=== PATIENT | female | born 1995 | race Caucasian/White ===

== ENCOUNTER 2017-09-17 19:50 | Emergency (ER) | payer BC ==
[~2017-09-17] VITALS: Ht 162.6 cm; Wt 51.4 kg
[2017-09-17 19:56] VITALS: TEMP 36.7; Ht 162.6 cm; Wt 51.4 kg
[2017-09-17] MEDS ORDERED: SODIUM CHLORIDE 0.9% 1000ML 1,000 ML IV STA ×2 (20:30)
[2017-09-17] MEDS ORDERED: KETOROLAC TROMETHAMINE 30 MG/ML VIAL IV STA (20:30)
[2017-09-17] MEDS ORDERED: ONDANSETRON INJ 2 MG/ML 2 ML VIAL IV STA (20:30)
[2017-09-17 21:08] LABS: BASO % 0.1 %; BASO ABS # 0.01 K/uL (0-0.2); EOS % 0.4 %; EOS ABS # 0.03 K/uL (0-0.5); HEMATOCRIT 41.1 % (37-47); HEMOGLOBIN 14.3 g/dL (12.0-16.0); IG# 0.01 K/uL (0.00-0.02); LYMPH % 19.7 %; MEAN CELL VOLUME 85.8 fL (80-100); MEAN CORPUSCULAR HEMOGLOBIN 29.9 pg (25-34); MEAN CORPUSCULAR HGB CONC 34.8 g/dl (32-36); MEAN PLATELET VOLUME 10.7 fL (7.4-10.4); MONO % 7.5 %; MONO ABS # 0.61 K/uL (0.11-0.59); NEUT % 72.2 %; NEUT ABS # 5.86 K/uL (1.4-6.5); PLATELET COUNT 203 K/uL (130-400); RED CELL DISTRIBUTION WIDTH CV 11.5 % (11.5-14.5); RED CELL DISTRIBUTION WIDTH SD 36.1 fL (36.4-46.3); WHITE BLOOD COUNT 8.12 K/uL (4.8-10.8)
[2017-09-17] MEDS ORDERED: OPTIRAY 320 IV PRN (22:00)
[2017-09-17 22:33] LABS: CALCIUM 8.7 mg/dl (8.5-10.1); CREATININE 0.85 mg/dl (0.60-1.20); POTASSIUM 3.4 mmol/L (3.5-5.1); TOTAL PROTEIN 8.2 gm/dl (6.4-8.2)
[2017-09-17 22:59] VITALS: BP 107/72; PULSE 85; O2SAT 99
--- NOTE | 2017-09-17 23:03 | DIAGNOSTIC IMAGING REPORT ---
ABD/PELVIS IV CONTRAST ONLY CLINICAL HISTORY: 21 years-old Female presenting with EVAL ABD PAIN, stomach pain, diarrhea. TECHNIQUE: Multidetector CT of the abdomen and pelvis was performed after the administration of intravenous contrast. IV contrast: 115 mL of Optiray 320. A dose lowering technique was used consistent with the principles of ALARA (as low as reasonably achievable). COMPARISON: None. CT DOSE (mGy.cm): The estimated cumulative dose is 246.56 mGy.cm. 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 Lung bases: Lungs and pleural spaces clear. Normal heart size. No pericardial or pleural effusion. Liver: Normal morphology. No liver lesion. Patent hepatic vasculature. Biliary: No intrahepatic or extrahepatic biliary ductal dilatation. Normal gallbladder. Pancreas: Normal. Spleen: Normal. Adrenal glands: Normal. Kidneys and ureters: Normal. No hydronephrosis. Bladder: Mild circumferential bladder wall thickening. Pelvic organs: Uterus and ovaries normal. Follicles noted in the ovaries bilaterally. Bowel: The cecum and proximal ascending colon is thick-walled. The terminal ileum is mildly distended. The appendix is normal (series 3 image 308). No periappendiceal fat stranding. No bowel obstruction. No gross evidence of small bowel wall thickening. Peritoneal cavity: Trace free fluid in the pelvis. Lymph nodes: Few prominent subcentimeter lymph nodes in the right lower quadrant mesentery. No pathologically enlarged lymph nodes by CT size criteria. Vasculature: Aorta and IVC patent and normal in caliber. Abdominal wall: Normal. Musculoskeletal: Normal. IMPRESSION: 1. Findings consistent with colitis, most likely infectious involving the cecum and ascending colon. The appendix is normal. 2. Circumference of bladder wall thickening could suggest cystitis. Correlate with urinalysis. Alternatively, this may be secondarily reactive to the colitis. Electronically signed by: Jesus Contreras M.D. 09/17/2017 11:02 PM Dictated Date/Time: 09/17/2017 10:55 PM
--- NOTE | 2017-09-17 23:16 | EMERGENCY ROOM VISIT NOTE ---
History First contact with patient: 20:14 Chief Complaint: ABDOMINAL PAIN Stated Complaint: STOMACH PAIN & DIARRHEA Nursing Triage Summary: mid abdominal pain and diarrhea for 28 hours. History of Present Illness Patient is an otherwise healthy 21-year-old white female who presents to the emergency department for evaluation of mid abdominal pain and diarrhea that started roughly 24 hours ago. Patient reports that she was feeling well and was in her usual state of health yesterday. She was at work when she began to notice some mild mid abdominal pain. Later that evening, she developed diarrhea. She states that she was able to get some sleep lasting, but her symptoms persisted this morning. She went to [facility] early in the morning, they'll discuss that her illness likely viral in nature and recommended an over- the-counter antidiarrheal. Patient states that she continue to have symptoms throughout the day. She reports roughly 12 bowel movements, she notes that they are yellow/orange in color, no melena or hematochezia. She has not vomited , but was nauseous intermittently. She did not have a fever. She states the pain was unchanged with eating and with moving her bowels. She did feel a little bit better this evening and ate some pears and noodles, which caused nausea and a recurrence of the diarrhea which prompted her to come to the emergency department. 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 She denies any recent antibiotic use, foreign travel or unusual food or water consumption. She has municipal water as a source at home. She denies any urinary symptoms. Last menstrual period was about a week and half ago, and she denies any chance of . She rates the pain a 7/10, notes it in the mid abdomen, between her ribs and her belt line. She denies any radiation. Review of Systems Review of systems as per HPI. All other systems reviewed were negative. 10 systems reviewed. Past Medical/Surgical History Medical Problems: (1) No Known Active Medical Problems Surgical Problems: (1) History of tonsillectomy and adenoidectomy The patient has no old records for review. Supplemental sheet was filled out by the patient, was reviewed and was unremarkable. Social History Smoking Status: Never Smoker Current/Historical Medications No Active Prescriptions or Reported Meds Physical Exam Vital Signs Date Time Temp Pulse Resp B/P (MAP) Pulse Ox O2 Delivery O2 Flow Rate FiO2 09/17/17 22:59 85 16 107/72 99 Room Air 09/17/17 21:52 93 18 116/69 100 Room Air 09/17/17 19:56 36.7 120 16 118/74 99 Room Air Physical Exam CONSTITUTIONAL: Patient is a well-appearing 21-year-old white female who is awake and alert and in no acute distress. She is noted to be tachycardic in triage. EYES: Pupils equal, round, reactive to light and accommodation. EOMs intact without nystagmus. Sclera are anicteric. ENT: Tympanic membranes intact, with normal landmarks. External canals are clear. Oral and nasopharynx are clear. Mucous membranes are moist, no lesions , tongue and gums appear normal. NECK: No bruits auscultated. Supple without lymphadenopathy. No thyromegaly. No meningeal signs. Full active range of motion without discomfort. CARDIOVASCULAR: Regular rate and rhythm, with normal S1 and S2, no murmur or gallop or rub is heard. No carotid bruits auscultated. No JVD. Peripheral pulses easily palpable. RESPIRATORY: Breath sounds equal and clear to auscultation without wheezes, rales, or rhonchi heard. Full and equal chest expansion without accessory muscle use or retractions. ABDOMEN: Bowel sounds are present. Abdomen is soft, scaphoid, mildly tender throughout the mid abdomen, and in the right lower quadrant, no guarding, rebound or rigidity. INTEGUMENTARY: No lesions or rash, normal skin turgor. LYMPH: No lymphadenopathy. Medical Decision & Procedures ER Provider Diagnostic Interpretation: ABD/PELVIS IV CONTRAST ONLY CLINICAL HISTORY: 21 years-old Female presenting with EVAL ABD PAIN, stomach pain, diarrhea. TECHNIQUE: Multidetector CT of the abdomen and pelvis was performed after the administration of intravenous contrast. IV contrast: 115 mL of Optiray 320. A dose lowering technique was used consistent with the principles of ALARA (as low as reasonably achievable). COMPARISON: None. CT DOSE (mGy.cm): The estimated cumulative dose is 246.56 mGy.cm. 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 Lung bases: Lungs and pleural spaces clear. Normal heart size. No pericardial or pleural effusion. Liver: Normal morphology. No liver lesion. Patent hepatic vasculature. Biliary: No intrahepatic or extrahepatic biliary ductal dilatation. Normal gallbladder. Pancreas: Normal. Spleen: Normal. Adrenal glands: Normal. Kidneys and ureters: Normal. No hydronephrosis. Bladder: Mild circumferential bladder wall thickening. Pelvic organs: Uterus and ovaries normal. Follicles noted in the ovaries bilaterally. Bowel: The cecum and proximal ascending colon is thick-walled. The terminal ileum is mildly distended. The appendix is normal (series 3 image 308). No periappendiceal fat stranding. No bowel obstruction. No gross evidence of small bowel wall thickening. Peritoneal cavity: Trace free fluid in the pelvis. Lymph nodes: Few prominent subcentimeter lymph nodes in the right lower quadrant mesentery. No pathologically enlarged lymph nodes by CT size criteria. Vasculature: Aorta and IVC patent and normal in caliber. Abdominal wall: Normal. Musculoskeletal: Normal. IMPRESSION: 1. Findings consistent with colitis, most likely infectious involving the cecum and ascending colon. The appendix is normal. 2. Circumference of bladder wall thickening could suggest cystitis. Correlate with urinalysis. Alternatively, this may be secondarily reactive to the colitis. Laboratory Results 09/17/17 20:51 Red Blood Count 4.79, Mean Corpuscular Volume 85.8, Mean Corpuscular Hemoglobin 29.9, Mean Corpuscular Hemoglobin Concent 34.8, Mean Platelet Volume 10.7, Neutrophils (%) (Auto) 72.2, Lymphocytes (%) (Auto) 19.7, Monocytes (%) (Auto) 7.5, Eosinophils (%) (Auto) 0.4, Basophils (%) (Auto) 0.1, Neutrophils # (Auto) 5.86, Lymphocytes # (Auto) 1.60, Monocytes # (Auto) 0.61, Eosinophils # (Auto) 0.03, Basophils # (Auto) 0.01 09/17/17 20:51 Test 09/17/17 20:51 White Blood Count 8.12 K/uL (4.8-10.8) Red Blood Count 4.79 M/uL (4.2-5.4) Hemoglobin 14.3 g/dL (12.0-16.0) Hematocrit 41.1 % (37-47) Mean Corpuscular Volume 85.8 fL (80-100) Mean Corpuscular Hemoglobin 29.9 pg (25-34) Mean Corpuscular Hemoglobin Concent 34.8 g/dl (32-36) Platelet Count 203 K/uL (130-400) Mean Platelet Volume 10.7 fL (7.4-10.4) Neutrophils (%) (Auto) 72.2 % Lymphocytes (%) (Auto) 19.7 % Monocytes (%) (Auto) 7.5 % Eosinophils (%) (Auto) 0.4 % Basophils (%) (Auto) 0.1 % Neutrophils # (Auto) 5.86 K/uL (1.4-6.5) Lymphocytes # (Auto) 1.60 K/uL (1.2-3.4) Monocytes # (Auto) 0.61 K/uL (0.11-0.59) Eosinophils # (Auto) 0.03 K/uL (0-0.5) Basophils # (Auto) 0.01 K/uL (0-0.2) RDW Standard Deviation 36.1 fL (36.4-46.3) RDW Coefficient of Variation 11.5 % (11.5-14.5) Immature Granulocyte % (Auto) 0.1 % Immature Granulocyte # (Auto) 0.01 K/uL (0.00-0.02) Urine Test NEG (NEG) Anion Gap 6.0 mmol/L (3-11) Est Creatinine Clear Calc Drug Dose 83.5 ml/min Estimated GFR () 111.9 Estimated GFR (Non- 96.6 BUN/Creatinine Ratio 15.2 (10-20) Calcium Level 8.7 mg/dl (8.5-10.1) Total Bilirubin 1.5 mg/dl (0.2-1) Aspartate Amino Transf (AST/SGOT) 13 U/L (15-37) Alanine Aminotransferase (ALT/SGPT) 18 U/L (12-78) Alkaline Phosphatase 75 U/L (45-117) Total Protein 8.2 gm/dl (6.4-8.2) Albumin 4.0 gm/dl (3.4-5.0) Globulin 4.2 gm/dl (2.5-4.0) Albumin/Globulin Ratio 1.0 (0.9-2) Lipase 122 U/L (73-393) Medications Administered Medications (Trade) Dose Ordered Sig/Silver Route Start Time Stop Time Status Last Admin Dose Admin Sodium Chloride 1,000 ml @ 999 mls/hr Q1H1M STAT IV 09/17/17 20:30 1/3/18 21:30 DC 09/17/17 20:30 999 MLS/HR Sodium Chloride 1,000 ml @ 250 mls/hr Q4H STAT IV 09/17/17 20:30 09/18/17 00:29 09/17/17 21:45 250 MLS/HR Ondansetron HCl (Zofran Inj) 4 mg NOW STAT IV 09/17/17 20:30 09/17/17 20:31 DC 09/17/17 21:03 4 MG Ketorolac Tromethamine (Toradol Inj) 30 mg NOW STAT IV 09/17/17 20:30 09/17/17 20:31 DC 09/17/17 21:03 30 MG ED Course The patient was seen and evaluated as above. She has no old records at this facility for review. She presents emergency department for evaluation of 24 hours of mid abdominal pain and diarrhea. On examination she is markedly tender in the right lower quadrant. IV lock was initiated. She was medicated with Toradol 30 mg and Zofran 4 mg IV, and hydrated with normal saline solution. Urine sample was collected, dipped and was clear, test was negative. CBC with differential, CMP and lipase were performed. Given the right lower quadrant pain, CT scan of the abdomen pelvis with IV contrast was ordered. Patient's laboratory studies were largely unremarkable. White count is not elevated, H&H is normal. Renal function are within normal limits. Electrolytes are without significant abnormality. Total bili slightly elevated at 1.5, remainder of her liver functions/transaminases are normal. Lipase is within normal limits. CT scan was as above, with findings consistent with colitis, most likely infectious involving the cecum and ascending colon. The appendix is normal. CT scan findings were reviewed with the patient. She was unable to provide a stool sample for analysis in the emergency department. She reported that her pain and improved and rated her discomfort a 2/10. Tachycardia had improved with analgesia and hydration. Conservative care measures were discussed. She was encouraged to push her fluids and follow a low residue diet until her diarrhea resolves. She was educated on the worrisome signs or symptoms for which she should return to the emergency department, including but not limited to vomiting, fevers or worsening pain. She was discharged home in stable condition. Differential diagnoses entertained included UTI, pyelonephritis, renal colic, appendicitis, ovarian torsion, infectious versus inflammatory colitis/enteritis , food borne illness, among others. Medical Decision See ED Course. Medication Reconcilliation Current Medication List: was personally reviewed by me Blood Pressure Screening Patient's blood pressure: Normal blood pressure Blood pressure disposition: Did not require urgent referral Impression Primary Impression: Colitis Additional Impression: Right lower quadrant abdominal pain Departure Information Prescriptions No Active Prescriptions or Reported Meds Referrals No Doctor, Assigned (PCP) Patient Instructions [facility] Additional Instructions Zofran(odansetron) tablets 4mg: Take one and allow it to dissolve in your mouth every four to six hours as needed for nausea or vomiting. Acetaminophen(Tylenol) may be used for fever or pain. Use 1000mg every six hours as needed. Avoid using more than 4000mg in a 24 hour period. Rest and drink plenty of fluids as tolerated. Slow sips of water or sports drinks are recommended instead of large amounts all at once. Continue current medications. Once your stomach is settled start with a clear liquid diet (jello, soup broth, etc.) and then advance as tolerated. You should avoid full, heavy meals for about 24 hrs from the time your symptoms resolved. Avoid dairy products until you have been free from diarrhea for 48 hours. Return to the ER for vomiting, fevers, worsening abdominal pain, chest pains, difficulty breathing, black or bloody stools, worsening of your condition, or as needed. Follow up with your primary physician in 2-3 days for a recheck of your current condition. Problem Qualifiers
[2017-09-17] MEDS ORDERED: ONDANSETRON HOME PACK 4MG OD TAB PO ONE (23:30)
== END 2017-09-17 23:25 | disposition home or self-care (01) ==
LOC: EDBD 19:52 → C.EDB 19:52 → C.EDC 23:25
DX: K52.9 Noninfective gastroenteritis and colitis, unspecified (principal); R10.31 Right lower quadrant pain